=== PATIENT | male | born 1960 | race Caucasian/White ===

== ENCOUNTER 2020-03-29 16:31 | Emergency (ER) | payer BC ==
[2020-03-29 16:42] VITALS: BP 133/86; PULSE 61; RESP 19; TEMP 98.7
--- NOTE | 2020-03-29 16:44 | ED ---
Lower Extremity Injury HPI - General Chief Complaint: Extremity Injury, Lower Stated Complaint: ankle injury Time Seen by Provider: 03/29/20 16:44 Source: patient, EMS Mode of arrival: EMS Limitations: no limitations - History of Present Illness Initial Comments: Patient is 59-year-old male presenting to the emergency department with a chief complaint of right leg pain. Patient states he fell off a ladder from about 4 feet high and injured his right ankle. He denies any injuries to the head in all reports a small abrasion on the left arm. Patient states is an obvious deformity to the right ankle. States he contacted an ambulance. Patient rece ived 100 g of fentanyl as well as 4 mg of Zofran. Patient states the pain is manageable right now as long as he is able to not move the foot. He denies any head injuries after the fall. No blood thinners. - Related Data Allergies Allergy/AdvReac Type Severity Reaction Status Date / Time No Known Allergies Allergy Verified 03/29/20 17:10 Review of Systems ROS Statement: Those systems with pertinent positive or pertinent negative responses have been documented in the HPI. ROS Other: All systems not noted in ROS Statement are negative. Past Medical History Past Medical History: GERD/Reflux History of Any Multi-Drug Resistant Organisms: None Reported Past Surgical History: Hernia Repair, Tonsillectomy Past Psychological History: No Psychological Hx Reported Smoking Status: Never smoker Past Alcohol Use History: Rare Past Drug Use History: None Reported General Exam Limitations: no limitations General appearance: alert, in no apparent distress Head exam: Present: atraumatic, normocephalic, normal inspection Eye exam: Present: normal appearance, PERRL, EOMI Pupils: Present: normal accommodation ENT exam: Present: normal exam, mucous membranes moist, TM's normal bilaterally, normal external ear exam Neck exam: Present: normal inspection, full ROM. Absent: tenderness Respiratory exam: Present: normal lung sounds bilaterally. Absent: respiratory distress, wheezes, rales Cardiovascular Exam: Present: regular rate, normal rhythm, normal heart sounds Extremities exam: Present: tenderness (Tenderness at the right ankle), normal capillary refill, other (+2 dorsalis pedis and posterior tibialis bilaterally. Patient has sensation intact proprioception and pain in the right lower extremity.). Absent: normal inspection (Obvious deformity with external rotation at the right ankle. Small abrasion on the left arm.), full ROM (Limited range of motion due to injury), pedal edema, joint swelling, calf tenderness Back exam: Present: normal inspection, full ROM. Absent: tenderness, CVA tenderness (R), CVA tenderness (L) Neurological exam: Present: alert, oriented X3 Psychiatric exam: Present: normal affect, normal mood Skin exam: Present: warm, dry, intact, normal color Course Vital Signs 03/29/20 16:34 Temperature 98.7 F Pulse Rate 61 Respiratory 19 Rate Blood Pressure 133/86 O2 Sat by Pulse 97 Oximetry Procedures - Orthopedic Fracture Reduction Fracture #1 Consent Obtained: verbal consent Side: right Technique: traction/counter-traction Post Reduction X-rays Demonstrate: acceptable reduction Post-Reduction Neuro Exam: intact Post-Reduction Vascular Exam: intact Splint Applied: Yes Patient Tolerated Procedure: well, no complications - Orthopedic Splinting/Casting Injury #1 Side: right Lower Extremity Injury Location: short leg Lower Extremity Immobilizer: posterior splint, stirrup splint, Bal wrap, synthetic pre-padded splint Other Orthopedic Equipment: crutches Medical Decision Making - Medical Decision Making Patient is a 59-year-old male presenting to emergency Department with a chief complaint of fall. Patient was up about 4 feet on a ladder when he lost balance and fell on his right leg. Didn't injure his head or any other extremities. There is a small abrasion on the left arm. He has an obvious deformity in his right ankle. He is otherwise neurovascularly intact in the right lower extremity. CBC and CMP are unremarkable. Patient was also given additional analgesia in the emergency department. X-ray reveals a commune a fracture of the tibia and fibula with impaction. I spoke with PILAR Weems working with , who suggested the patient to be transferred to another facility for further medical treatment. I spoke with Dr Devyn Woodall from [facility] who accepted the transfer. The patient and his requested this facility. Slight countertraction was applied to the fracture and I was able to have some improvement to the fracture. Posterior splint with ankle stirrup was applied. Case discussed with . - Lab Data Result diagrams: 03/29/20 17:37 03/29/20 17:37 Lab Results 03/29/20 03/29/20 03/29/20 Range/Units 17:37 17:37 17:37 WBC 9.2 (3.8-10.6) k/uL RBC 4.91 (4.30-5.90) m/uL Hgb 14.3 (13.0-17.5) gm/dL Hct 43.0 (39.0-53.0) % MCV 87.6 (80.0-100.0) fL MCH 29.1 (25.0-35.0) pg MCHC 33.3 (31.0-37.0) g/dL RDW 13.2 (11.5-15.5) % Plt Count 181 (150-450) k/uL Neutrophils % 72 % Lymphocytes % 20 % Monocytes % 4 % Eosinophils % 2 % Basophils % 1 % Neutrophils # 6.6 (1.3-7.7) k/uL Lymphocytes # 1.9 (1.0-4.8) k/uL Monocytes # 0.4 (0-1.0) k/uL Eosinophils # 0.2 (0-0.7) k/uL Basophils # 0.1 (0-0.2) k/uL PT 10.9 (9.0-12.0) sec INR 1.1 (<1.2) APTT 18.9 L (22.0-30.0) sec Sodium 140 (137-145) mmol/L Potassium 3.7 (3.5-5.1) mmol/L Chloride 108 H (98-107) mmol/L Carbon Dioxide 23 (22-30) mmol/L Anion Gap 9 mmol/L BUN 20 (9-20) mg/dL Creatinine 1.03 (0.66-1.25) mg/dL Est GFR (CKD-EPI)AfAm >90 (>60 ml/min/1.73 sqM) Est GFR (CKD-EPI)NonAf 79 (>60 ml/min/1.73 sqM) Glucose 111 H (74-99) mg/dL Calcium 9.0 (8.4-10.2) mg/dL Total Bilirubin 0.7 (0.2-1.3) mg/dL AST 29 (17-59) U/L ALT 24 (4-49) U/L Alkaline Phosphatase 80 (38-126) U/L Total Protein 6.1 L (6.3-8.2) g/dL Albumin 3.8 (3.5-5.0) g/dL Disposition Clinical Impression: Fracture of distal end of right tibia, Fracture of distal end of right fibula Disposition: OTHER INSTITUTION NOT DEFINED Condition: Stable Instructions (If sedation given, give patient instructions): Ankle Fracture (ED) Additional Instructions: Patient will be transferred Is patient prescribed a controlled substance at d/c from ED?: No Referrals: Godwin Garcia MD [Primary Care Provider] - 1-2 days Time of Disposition: 18:53 - Out of Hospital Transfer - Req. Specs Out of Hospital Transfer - Requested Specifics: Other Emergency Center ([facility])
--- NOTE | 2020-03-29 17:28 | XR ---
EXAMINATION TYPE: XR ankle complete RT DATE OF EXAM: 03/29/2020 COMPARISON: NONE HISTORY: Pain TECHNIQUE: 3 views FINDINGS: There is impacted comminuted fracture distal tibial metaphysis. There is no dislocation at the ankle joint. There is comminuted fracture distal shaft of the fibula. There is some mild medial a ngulation at the fracture sites. Tibial fracture line extends to the articular surface. IMPRESSION: Comminuted fractures of the distal tibia and fibula with impaction.
--- NOTE | 2020-03-29 17:29 | XR ---
EXAMINATION TYPE: XR foot complete RT DATE OF EXAM: 03/29/2020 COMPARISON: NONE HISTORY: Pain TECHNIQUE: 3 views FINDINGS: Metatarsals are intact. The toes appear intact. Tarsal bones are intact. Fractures of dista l tibia and fibula are noted. The talus and calcaneus appear intact. IMPRESSION: No fracture seen of the bones of the foot.
[2020-03-29 17:49] LABS: Basophils # (A) 0.1 k/uL (0-0.2); Basophils % (A) 1 %; Eosinophils # (A) 0.2 k/uL (0-0.7); Eosinophils % (A) 2 %; HGB 14.3 gm/dL (13.0-17.5); Lymphocytes # (A) 1.9 k/uL (1.0-4.8); Lymphocytes % (A) 20 %; MCH 29.1 pg (25.0-35.0); MCHC 33.3 g/dL (31.0-37.0); MCV 87.6 fL (80.0-100.0); Mean Platelet Volume 7.5; Monocytes # (A) 0.4 k/uL (0-1.0); Monocytes % (A) 4 %; Neutrophils # (A) 6.6 k/uL (1.3-7.7); Neutrophils % (A) 72 %; Platelet Count 181 k/uL (150-450); RBC 4.91 m/uL (4.30-5.90); RDW 13.2 % (11.5-15.5); WBC 9.2 k/uL (3.8-10.6)
[2020-03-29 18:07] LABS: ALT 24 U/L (4-49); AST 29 U/L (17-59); African American GFR (CKD) >90 (>60 ml/min/1.73 sqM); Albumin 3.8 g/dL (3.5-5.0); Alkaline Phosphatase 80 U/L (38-126); Anion Gap 9 mmol/L; Blood Urea Nitrogen 20 mg/dL (9-20); Carbon Dioxide 23 mmol/L (22-30); Chloride 108 mmol/L (98-107); Glucose 111 mg/dL (74-99); Non-African American GFR(CKD) 79 (>60 ml/min/1.73 sqM); Potassium 3.7 mmol/L (3.5-5.1); Sodium 140 mmol/L (137-145); Total Bilirubin 0.7 mg/dL (0.2-1.3); Total Protein 6.1 g/dL (6.3-8.2)
[2020-03-29 18:08] LABS: INR 1.1 (<1.2); Prothrombin Time 10.9 sec (9.0-12.0)
[2020-03-29 18:11] LABS: Partial Thromboplastin Time 18.9 sec (22.0-30.0)
[2020-03-29] MEDS ORDERED: HYDROmorphone 1 MG/ML 1 ML SYRINGE IVP PRN (18:13)
[2020-03-29] MEDS ORDERED: HYDROmorphone 0.5 MG/0.5 ML SYRINGE IVP STA (19:48)
== END 2020-03-29 20:27 | disposition other institution (70) ==
LOC: EC 16:31
DX: S52.591A Other fractures of lower end of right radius, initial encounter for closed fracture (principal); S52.691A Other fracture of lower end of right ulna, initial encounter for closed fracture; S40.812A Abrasion of left upper arm, initial encounter; W11.XXXA Fall on and from ladder, initial encounter
CPT/HCPCS: 36415; 86900; 86901; 80053; 85025; 85610; 85730; 86850; 73610; 73630; 99285; 96374; 96376; 25565; J1170 ×2